=== PATIENT | male | born 1980 | race Caucasian/White ===

== ENCOUNTER 2017-10-28 15:05 | Emergency (ER) | payer BC ==
[2017-10-28 15:21] VITALS: BP 139/75
--- NOTE | 2017-10-28 15:53 | UC ---
Eye Complaint HPI - HPI Summary HPI Summary: Pt here w/ Rt eye itching, wateriness and irritation of the lid since Wednesday. Denies thick d/c or stuck shut lid in AM but admits he gets "pink eye" once a year and this feels similar. He's been using OTC "pink eye" drops for itch/ irritation which have been helping but sx are lingering longer than usual. Feels it looks better today than it has looked since it started but was determined to get a consult as he was frustrated with it last night. Denies FB sensation, scratching, pain within eye itself - lid is irritated. No change in vision, floaters, ocular pain w/ movement and does not wear contact lenses. Denies sensitive skin, new cosmetics, contact with debris/chemicals/etc but admits he's been rubbing eye which most likely made irritation worse. Admits he has a few young kids at home who all have some sort of illness currently from URI to GI bug. No one else has these eye sx. Pt also denies h/o atopic dermatitis. - History of Current Complaint Chief Complaint: UCEye Stated Complaint: RIGHT EYE COMPLAINT Time Seen by Provider: 10/28/17 15:39 Hx Obtained From: Patient Pain Intensity: 0 - Allergies/Home Medications Allergies/Adverse Reactions: Allergies Allergy/AdvReac Type Severity Reaction Status Date / Time No Known Allergies Allergy Verified 10/28/17 15:21 PMH/Surg Hx/FS Hx/Imm Hx Previously Healthy: Yes - Surgical History Surgical History: Yes Surgery Procedure, Year, and Place: Vasectomy - Family History Known Family History: Positive: Unknown - Social History Occupation: Employed Full-time Lives: With Family Alcohol Use: Occasionally Substance Use Type: None Smoking Status (MU): Never Smoked Tobacco Review of Systems Constitutional: Negative Skin: Negative Eyes: Other - lid irritation ENT: Negative Respiratory: Negative Cardiovascular: Negative Gastrointestinal: Negative Motor: Negative Neurovascular: Negative Musculoskeletal: Negative Neurological: Negative Psychological: Negative Is Patient Immunocompromised?: No All Other Systems Reviewed And Are Negative: Yes Physical Exam Triage Information Reviewed: Yes Appearance: Well-Appearing, No Pain Distress, Well-Nourished Vital Signs: Initial Vital Signs Temp 98.6 F 10/28/17 15:17 Pulse 60 10/28/17 15:17 Resp 16 10/28/17 15:17 BP 139/75 02/22/18 15:17 Pulse Ox 100 10/28/17 15:17 Vital Signs Reviewed: Yes Eye Exam: Other - Rt sclera is clear and moist - no signs of abrasion/lesion/FB ; no pain w/ ocular movements - EOMI; superior palpebral margin with mild pinkness and subtle edema compared to Lt skin about the eye. No mary abrasion, skin breakdown - no d/c or crusting Eyes: Positive: Conjunctiva Clear. Negative: Discharge ENT Exam: Normal ENT: Positive: Normal ENT inspection, Hearing grossly normal, Pharynx normal, TMs normal. Negative: Nasal congestion, Nasal drainage Neck exam: Normal Neck: Positive: Supple, Nontender, No Lymphadenopathy Respiratory Exam: Normal Cardiovascular Exam: Normal Musculoskeletal Exam: Normal Musculoskeletal: Positive: Strength Intact Neurological Exam: Normal Psychological Exam: Normal Skin Exam: Other - as above Eye Complaint Course/Dx - Course Course Of Treatment: Suspect pt has eyelid irritation from recent watery eye d/ c followed by wiping and rubbing. Unsure of trigger and he admits today it looks better than usual. Encouraged to continue eye drops as they seem to sooth and help sx. He may also apply warm compress for comfort or ice to reduce irritation/inflammation (whichever feels better). Will rx anbx ointment in the event he has a mild case of blepharitis that's lingering. Does not wear contact lenses. Advised to wait another day before starting drops in the event sx clear on their own. If not, start drops and monitor. If sx persist or worsen, f/u w/ Dr. Greenfield's office. Danger s/sx reviewed w/ pt who agrees w/ plan. - Differential Dx/Diagnosis Provider Diagnoses: Rt eye blepharitis, mild Discharge - Discharge Plan Condition: Stable Disposition: HOME Prescriptions: Erythromycin OPTH OINT* [Erythromycin 0.5% OPTH OINT*] 1 applic RIGHT EYE TID # 1 tube Patient Education Materials: Blepharitis (ED) Referrals: Fabrizio Greenfield MD [Medical Doctor] - Additional Instructions: Implement supportive care measures in education today and tomorrow. If worse tomorrow, start antibiotic eye ointment as directed. Follow-up with Dr. Greenfield's practice if not improving. If you develop change in vision, pain with eye movement, headache, neck stiffness, go to ED.
== END 2017-10-28 16:11 | disposition home or self-care (01) ==
LOC: UCCORT 15:05
DX: H01.003 Unspecified blepharitis right eye, unspecified eyelid (principal)
CPT/HCPCS: 99212; G0463

== ENCOUNTER 2018-06-06 13:44 | Emergency (ER) | payer BC ==
[2018-06-06 14:04] VITALS: BP 151/88
--- NOTE | 2018-06-06 14:12 | UC ---
Ear Complaint HPI - HPI Summary HPI Summary: The patient is a 37-year-old male that presents here with a left ear cerumen impaction. He tried to flush his ear himself and he made matters worse. He is unable to hear from his left ear. - History of Current Complaint Chief Complaint: UCEar Stated Complaint: LEFT EAR COMPLAINT Time Seen by Provider: 06/06/18 14:05 Onset/Duration: Gradual Onset, Lasting Days Severity Initially: Mild Severity Currently: Moderate Pain Intensity: 0 Pain Scale Used: 0-10 Numeric Associated Signs/Symptoms: Positive: Hearing Loss Related History: Other (Noted In Comments) - frequent cerumen impactions - Allergies/Home Medications Allergies/Adverse Reactions: Allergies Allergy/AdvReac Type Severity Reaction Status Date / Time No Known Allergies Allergy Verified 06/06/18 14:04 PMH/Surg Hx/FS Hx/Imm Hx Previously Healthy: Yes Cardiovascular History: Hypertension - Surgical History Surgical History: Yes Surgery Procedure, Year, and Place: Vasectomy - Family History Known Family History: Positive: Hypertension - Social History Alcohol Use: Occasionally Substance Use Type: None Smoking Status (MU): Never Smoked Tobacco Review of Systems Constitutional: Negative Skin: Negative Eyes: Negative ENT: Other - decreased hearing Respiratory: Negative Cardiovascular: Negative Gastrointestinal: Negative Genitourinary: Negative Motor: Negative Neurovascular: Negative Musculoskeletal: Negative Neurological: Negative Psychological: Negative Is Patient Immunocompromised?: No All Other Systems Reviewed And Are Negative: Yes Physical Exam Triage Information Reviewed: Yes Appearance: Well-Appearing, No Pain Distress, Well-Nourished Vital Signs: Initial Vital Signs Temp 98.2 F 06/06/18 14:00 Pulse 64 06/06/18 14:00 Resp 18 06/06/18 14:00 BP 151/88 06/06/18 14:00 Pulse Ox 100 06/06/18 14:00 Vital Signs Reviewed: Yes Eyes: Positive: Conjunctiva Clear ENT: Positive: TMs normal - right normal/Left unable to vis due to cerumen impaction. Negative: Hearing grossly normal, Pharyngeal erythema, Nasal congestion, Trismus, Muffled voice, Hoarse voice Neck: Positive: Supple Respiratory: Positive: Lungs clear, Normal breath sounds, No respiratory distress, No accessory muscle use Cardiovascular: Positive: RRR, No Murmur Neurological: Positive: Alert Psychological Exam: Normal Skin Exam: Normal Re-Evaluation - Re-Evaluation First Eval Re-Evaluation Time: 14:20 Change: Improved - after flush left TM normal Ear Complaint Course/Dx - Differential Dx/Diagnosis Provider Diagnoses: cerument impaction (left) Discharge - Sign-Out/Discharge Documenting (check all that apply): Patient Departure All imaging exams completed and their final reports reviewed: No Studies - Discharge Plan Condition: Stable Disposition: HOME Patient Education Materials: Cerumen Impaction (ED) Referrals: Chrissy Quiroga MD [Primary Care Provider] - Additional Instructions: call for any questions return for any problems - Billing Disposition and Condition Condition: STABLE Disposition: Home
== END 2018-06-06 14:30 | disposition home or self-care (01) ==
LOC: UCCORT 13:44
DX: H61.22 Impacted cerumen, left ear (principal); I10 Essential (primary) hypertension
CPT/HCPCS: 99212; G0463